=== PATIENT | male | born 2000 | race Caucasian/White ===

== ENCOUNTER 2023-10-22 20:42 | Emergency (ER) | payer SELFPAY ==
[2023-10-22 20:45] VITALS: BP 174/106
[2023-10-22] MEDS: ADACEL 0.5 ML IM (22:20)
[2023-10-22 22:37] VITALS: BP 128/84
--- NOTE | 2023-10-22 22:59 | ED.SKININJ ---
HPI-Injury
General
Chief Complaint: Skin Surface Trauma
Source: patient
Exam Limitations: none
Time Seen by Provider: 10/22/23 20:54
Nursing documentation reviewed up to this point in time: agreed with
Travel History
Have you had any contact with someone who has COVID-19?: No
Do you have any symptoms of coronavirus? Fever > 100 degrees, chills, cough, shortness of breath, sore throat, loss of taste or smell, muscle aches, or headache?: No
History of Present Illness-Injury
Is this injury a work related problem?: Yes
Is pt an associate of [facility]?: No
Initial Injury comments:
Accidentally cut finger with box person. SUstained laceration to left middle finger. Injury occurred just [employer]
Past History
Past History
ED Past Medical History: None
ED Past Surgical History: None
Review of Systems
Review of Systems
Allergies reviewed?: Yes
All Other Systems: ROS reviewed and negative except as documented in HPI and ROS
Constitutional: Reports no symptoms
Musculoskeletal: Reports no symptoms
Skin: Reports other (laceration to left middle finger)
Neurological: Reports no symptoms
Psychiatric: Reports no symptoms
Skin Exam
Laceration
Left Third Finger:
Length in cm: 2.5
Orientation: diagonal
Type of Laceration: simple
Any active bleeding?: low grade venous oozing
Distal skin color and temperature: normal-warm & good color
Normal distal neurovascular exam: Yes
Range of motion: full
Phy Exam
General Physical Exam
General Presentation: well appearing and no apparent distress
General age: appears stated age
General Skin: warm and dry
General Habitus: normal
General Mental: alert
Musculoskeletal Exam
Musculoskeletal Exam: full ROM and neuro vasc intact
Skin Exam
Skin Exam: normal color, warm/dry and no rash
Psychiatric Exam
Psychiatric Exam: normal mood/affect
Course
Orders/Labs/Results
Orders:
Orders
10/22/23 21:16
Tetanus/Diphth/Acelpertussis [Adacel] 0.5 ml IM .ONCE ONE
Vital Signs
Initial and Last Documented VS:
Initial Vital Signs
Temp Pulse Resp BP Pulse Ox
98.9 F 84 18 174/106 100
10/22/23 20:45 10/22/23 20:45 10/22/23 20:45 10/22/23 20:45 10/22/23 20:45
Last Documented Vital Signs
Temp Pulse Resp BP Pulse Ox
98.9 F 84 18 128/84 100
10/22/23 20:45 10/22/23 20:45 10/22/23 20:45 10/22/23 22:37 10/22/23 20:45
Procedures
Laceration Closure
Left Third Finger:
Status of Wound: clean
Description of Wound Edges: sharp
Preparation: cleaned with saline
Anesthesia: 1% Lidocaine and Digital-Regional
Revision/Debridement: routine- no revision
Wound exploration: explored to base- no FB and no tendon involvement
Type of Closure: single layer closure
Skin Closure Material: 6-0 prolene
*Pulse Oximetry
Patient hypoxic: no
*Critical Care Note
Total Time (30-74mins, 75-104mins- exclusive of procedures): Not Applicable
ED Attending Note
-
Portions of this chart may have been created with voice recognition software.� Occasional wrong word or��sound alike� substitutions may have occurred due to the inherent limitations of voice recognition software.
Discharge Plan
Departure
Patient Disposition: Home (Routine Discharge)
Date of Disposition: 10/22/23
Time of Disposition: 21:49
Patient with high blood pressure during this ER visit?: No
Condition: Good
Covid-19: Not Applicable
Discharge Problem:
Finger laceration
Instructions: Laceration Repair With Stitches (DC)
Referrals:
Piper Huerta MD [Family Provider] - (Sutures can be removed in 7-10 days)
Interventions
Interventions:
*Risk Screen - Suicide Last Done: 10/22/23 20:45
*General Assessment Last Done: 10/22/23 22:38
*Neglect/Abuse Screening Last Done: 10/22/23 20:45
*ED COVID-19 Vaccine History Last Done: 10/22/23 22:38
*Nursing Disposition Last Done: 10/22/23 22:37
Discharge Date and Time
Discharge Date/Time: 10/22/23 22:39
Print Language: TRINIDADIAN
== END 2023-10-22 22:39 | disposition home or self-care (01) ==
LOC: EMR 20:42
PROVIDERS: EMERGENCY PHYSICIAN Emergency Medicine; FAMILY PHYSICIAN Family Medicine
DX: S61.213A Laceration without foreign body of left middle finger without damage to nail, initial encounter (principal); W26.0XXA Contact with knife, initial encounter; Z23 Encounter for immunization; J45.909 Unspecified asthma, uncomplicated; Z86.16 Personal history of COVID-19
CPT/HCPCS: 99282; 12001; 90471; 90715